=== PATIENT | male | born 1995 | race Caucasian/White ===

== ENCOUNTER 2023-02-17 18:14 | Emergency (ER) | payer OTHER, SELFPAY ==
[2023-02-17 18:17] VITALS: BP 130/71; PULSE 71; RESP 16; TEMP 37.2; O2SAT 95
--- NOTE | 2023-02-17 18:19 | ED.ANXIETY1 ---
Documented by User: Rashid Hall MD 02/17/23 18:23 HPI - Anxiety General Chief Complaint: Anxiety Stated Complaint: anxiety Time Seen by Provider: 02/17/23 18:19 Source: patient, family and EMR History of Present Illness HPI narrative: 19-year-old arrived by ambulance. His mother called the department prior to his arrival. This young man who lives independently went to his neighbor's house and asked them to call paramedics. He did not have a specific complaints that he just didn't feel right. Earlier today he did not go to work but he did not any particular reason why he didn't go. He does have a history of seizure disorder and takes Keppra. He also has history of some anxiety. Currently he was seen on arrival here. Paramedics checked his blood sugar was normal. He did not have a type of seizure or postictal state since they arrived at the scene. He's been awake and alert moderately anxious. Vital signs are noted as above. Related Data Allergies Allergy/AdvReac Type Severity Reaction Status Date / Time No Known Drug Allergies Allergy Verified 02/17/23 18:20 [facility] PFS Social History Smoking status: Never smoker Exam Narrative Exam Narrative: awake alert oriented ?3 following all commands appears in no distress do not smell alcohol. Do not see any evidence of acute intoxication. Does not have confusion, was not repeating himself. Is not ictal. Head and neck shows no evidence trauma or injury. He is blind in his right eye. The left eye shows pupils mid position and reactive. Extra ocular muscles are normal. Neck is soft and supple with no meningeal irritation. Chest shows no chest wall injury or contusions. Respiratory shows lungs clear with no wheezes rales or rhonchi pulse oximetry normal. Cardiac heart rate and rhythm are normal. There is no ectopy hear no heart murmur. Abdomen he had no abdominal complaints he does have to void and use the urinal upon arrival here. Extremities show no contusions abrasions hemaatomas or evidence of injury. Skin is warm and dry with no evidence of cyanosis. He is not clammy or diaphoretic. Neuro he follows all commands. There is no gross motor deficit. Spontaneous movement. As noted above he has no evidence of confusion. Constitutional Vital Signs - 24 hr 02/17/23 18:17 Temperature 99.0 F Pulse Rate [Monitor] 71 Respiratory Rate 16 Blood Pressure [Right Arm] 130/71 H Pulse Oximetry 95 Oxygen Delivery Method Room Air Course Vital Signs Vital signs: Vital Signs Temperature 99.0 F 02/17/23 18:17 Pulse Rate 71 02/17/23 18:17 Respiratory Rate 16 02/17/23 18:17 Blood Pressure 130/71 H 02/17/23 18:17 Pulse Oximetry 95 02/17/23 18:17 Oxygen Delivery Method Room Air 02/17/23 18:17 Temperature 99.0 F 02/17/23 18:17 Pulse Rate 71 02/17/23 18:17 Respiratory Rate 16 02/17/23 18:17 Blood Pressure 130/71 H 02/17/23 18:17 Pulse Oximetry 95 02/17/23 18:17 Oxygen Delivery Method Room Air 02/17/23 18:17 MDM - Anxiety Lab Data Labs: Lab Results 02/17/23 Range/Units 18:30 WBC 10.0 (4.0-11.0) 10^3/uL RBC 5.54 (4.70-6.10) 10^6/uL Hgb 16.7 (14.0-18.0) g/dL Hct 48.3 (42.0-54.0) % MCV 87.2 (80.0-94.0) fL MCH 30.1 (25.9-34.0) pg MCHC 34.6 (29.9-35.2) g/dL RDW 11.9 (11.0-15.0) % Plt Count 262 (150-450) 10^3/uL MPV 9.1 L (9.5-13.5) fL Neut % (Auto) 82.3 H (43.0-75.0) % Lymph % (Auto) 12.1 L (20.5-60.0) % [place] % (Auto) 4.7 (1.7-12.0) % Eos % (Auto) 0.3 L (0.9-7.0) % Baso % (Auto) 0.2 (0.2-2.0) % Neut # (Auto) 8.2 H (1.4-6.5) 10^3/uL Lymph # (Auto) 1.2 (1.2-3.8) 10^3/uL [place] # (Auto) 0.5 (0.3-0.8) 10^3/uL Eos # (Auto) 0.0 (0.0-0.7) 10^3/uL Baso # (Auto) 0.0 (0.0-0.1) 10^3/uL Abs Immat Gran (auto) 0.04 H (0.00-0.03) 10^3/uL Imm/Tot Granulo (auto) 0.4 (0.0-0.5) % Sodium 138 (136-145) mmol/L Potassium 3.4 L (3.5-5.1) mmol/L Chloride 101 (98-107) mmol/L Carbon Dioxide 26.9 (21.0-32.0) mmol/L Anion Gap 13.5 BUN 20.0 H (7.0-18.0) mg/dL Creatinine 1.06 (0.70-1.30) mg/dL Est GFR ( Amer) >60 (>=60) Est GFR (Non-Af Amer) >60 (>=60) BUN/Creatinine Ratio 18.9 Glucose 109 H (74-106) mg/dL Lactate 1.1 (0.4-2.0) mmol/L Calcium 9.9 (8.5-10.1) mg/dL Total Bilirubin 0.7 (0.2-1.0) mg/dL AST 21 (15-37) U/L ALT 41 (16-63) U/L Alkaline Phosphatase 78 (46-116) U/L Total Protein 8.0 (6.4-8.2) g/dL Albumin 4.6 (3.4-5.0) g/dL Globulin 3.4 g/dL Albumin/Globulin Ratio 1.4 Discharge Plan Discharge Chief Complaint: Anxiety Clinical Impression: Acute anxiety Patient Disposition: Home, Self-Care Instructions: Anxiety (ED) Additional Instructions: follow up with your family doctor this week for recheck Stand Alone Forms: Portal Instructions Referrals: JESÚS ADLER [Primary Care Provider] - 1 week Documented by User: Matty Roy MD 02/17/23 20:12 HPI - Anxiety General Chief Complaint: Anxiety Stated Complaint: anxiety Time Seen by Provider: 02/17/23 18:19 Related Data Allergies Allergy/AdvReac Type Severity Reaction Status Date / Time No Known Drug Allergies Allergy Verified 02/17/23 18:20 PFSH PFSH Social History Smoking status: Never smoker Exam Constitutional Vital Signs - 24 hr 02/17/23 18:17 Temperature 99.0 F Pulse Rate [Monitor] 71 Respiratory Rate 16 Blood Pressure [Right Arm] 130/71 H Pulse Oximetry 95 Oxygen Delivery Method Room Air Course Vital Signs Vital signs: Vital Signs Temperature 99.0 F 02/17/23 18:17 Pulse Rate 71 02/17/23 18:17 Respiratory Rate 16 02/17/23 18:17 Blood Pressure 130/71 H 02/17/23 18:17 Pulse Oximetry 95 02/17/23 18:17 Oxygen Delivery Method Room Air 02/17/23 18:17 Temperature 99.0 F 02/17/23 18:17 Pulse Rate 71 02/17/23 18:17 Respiratory Rate 16 02/17/23 18:17 Blood Pressure 130/71 H 02/17/23 18:17 Pulse Oximetry 95 02/17/23 18:17 Oxygen Delivery Method Room Air 02/17/23 18:17 MDM - Anxiety MDM Narrative Medical decision making narrative: care transferred at change of shift. Patient walked to neighbors and had them call Squad. Arrived without specific complaint. Workup ordered by Dr Hall neg except potassium is mildly low. Potassium supplemented. Patient in no distress. Still feels a little anxious about his body. discharged home to follow up with his doctor with working diagnosis of anxiety Lab Data Labs: Lab Results 02/17/23 Range/Units 18:30 WBC 10.0 (4.0-11.0) 10^3/uL RBC 5.54 (4.70-6.10) 10^6/uL Hgb 16.7 (14.0-18.0) g/dL Hct 48.3 (42.0-54.0) % MCV 87.2 (80.0-94.0) fL MCH 30.1 (25.9-34.0) pg MCHC 34.6 (29.9-35.2) g/dL RDW 11.9 (11.0-15.0) % Plt Count 262 (150-450) 10^3/uL MPV 9.1 L (9.5-13.5) fL Neut % (Auto) 82.3 H (43.0-75.0) % Lymph % (Auto) 12.1 L (20.5-60.0) % Beckham % (Auto) 4.7 (1.7-12.0) % Eos % (Auto) 0.3 L (0.9-7.0) % Baso % (Auto) 0.2 (0.2-2.0) % Neut # (Auto) 8.2 H (1.4-6.5) 10^3/uL Lymph # (Auto) 1.2 (1.2-3.8) 10^3/uL [place] # (Auto) 0.5 (0.3-0.8) 10^3/uL Eos # (Auto) 0.0 (0.0-0.7) 10^3/uL Baso # (Auto) 0.0 (0.0-0.1) 10^3/uL Abs Immat Gran (auto) 0.04 H (0.00-0.03) 10^3/uL Imm/Tot Granulo (auto) 0.4 (0.0-0.5) % Sodium 138 (136-145) mmol/L Potassium 3.4 L (3.5-5.1) mmol/L Chloride 101 (98-107) mmol/L Carbon Dioxide 26.9 (21.0-32.0) mmol/L Anion Gap 13.5 BUN 20.0 H (7.0-18.0) mg/dL Creatinine 1.06 (0.70-1.30) mg/dL Est GFR ( Amer) >60 (>=60) Est GFR (Non-Af Amer) >60 (>=60) BUN/Creatinine Ratio 18.9 Glucose 109 H (74-106) mg/dL Lactate 1.1 (0.4-2.0) mmol/L Calcium 9.9 (8.5-10.1) mg/dL Total Bilirubin 0.7 (0.2-1.0) mg/dL AST 21 (15-37) U/L ALT 41 (16-63) U/L Alkaline Phosphatase 78 (46-116) U/L Total Protein 8.0 (6.4-8.2) g/dL Albumin 4.6 (3.4-5.0) g/dL Globulin 3.4 g/dL Albumin/Globulin Ratio 1.4 Discharge Plan Discharge Chief Complaint: Anxiety Clinical Impression: Acute anxiety Patient Disposition: Home, Self-Care Instructions: Anxiety (ED) Additional Instructions: follow up with your family doctor this week for recheck Stand Alone Forms: Portal Instructions Referrals: JESÚS ADLER [Primary Care Provider] - 1 week
--- NOTE | 2023-02-17 18:24 | CT_ITS ---
[address] [address] Patient Name: GURPREET MCKEON MRN: [id number] date: 1995 Sex: M Assigned Patient Location: ER Current Patient Location: ED.MAIN Accession/Order Number: [id number] Exam Date: 02/17/2023 18:52 Report Date: 02/17/2023 19:35 At the request of: WANDA MAYER Procedure: CT head/brain wo con EXAMINATION: CT head/brain wo con, 02/17/2023 6:52 PM EDT HISTORY: Confusion COMPARISON: 01/12/2014 TECHNIQUE: CT scan of the head was performed without IV contrast. CT dose reduction technique was used, including Automated Exposure Control. FINDINGS: BRAIN PARENCHYMA/CSF SPACES: Ventricles are normal in size for age. There is no hemorrhage, mass effect or midline shift. There are no other significant findings. PARANASAL SINUSES: Clear. SKULL BASE AND CALVARIUM: Normal. EXTRACRANIAL SOFT TISSUES: Partially calcified right globe. IMPRESSION: No acute intracranial findings. Calcified right globe. Electronically authenticated by: BERNIE AUSTIN Date: 02/17/2023 19:35
--- NOTE | 2023-02-17 18:24 | ECG_ITS ---
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
--- NOTE | 2023-02-17 18:48 | PC.NURSE ---
per pt's mom, pt somewhat disoriented today and went to neighbors saying he didn't feel good. 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 takes keppra for a seizure disorder
[2023-02-17 18:59] LABS: Basophils Percent Auto 0.2 % (0.2-2.0); Eosinophils Percent Auto 0.3 % (0.9-7.0); Hematocrit 48.3 % (42.0-54.0); Hemoglobin 16.7 g/dL (14.0-18.0); Immature Granulocytes Abs Auto 0.04 10^3/uL (0.00-0.03); Immature Granulocytes Pct Auto 0.4 % (0.0-0.5); Lymphocytes Absolute Auto 1.2 10^3/uL (1.2-3.8); Lymphocytes Percent Auto 12.1 % (20.5-60.0); Mean Corpuscular HGB Conc 34.6 g/dL (29.9-35.2); Mean Corpuscular Hemoglobin 30.1 pg (25.9-34.0); Mean Corpuscular Volume 87.2 fL (80.0-94.0); Mean Platelet Volume 9.1 fL (9.5-13.5); Monocytes Absolute Auto 0.5 10^3/uL (0.3-0.8); Monocytes Percent Auto 4.7 % (1.7-12.0); Neutrophils Absolute Auto 8.2 10^3/uL (1.4-6.5); Neutrophils Percent Auto 82.3 % (43.0-75.0); Platelet Count 262 10^3/uL (150-450); Red Blood Count 5.54 10^6/uL (4.70-6.10); Red Cell Distribution Width 11.9 % (11.0-15.0)
[2023-02-17 19:19] LABS: Lactate/Lactic Acid 1.1 mmol/L (0.4-2.0)
[2023-02-17 19:25] LABS: Alanine Aminotransferase 41 U/L (16-63); Albumin Globulin Ratio 1.4; Albumin Level 4.6 g/dL (3.4-5.0); Alkaline Phosphatase 78 U/L (46-116); Anion Gap 13.5; Aspartate Amino Transferase 21 U/L (15-37); BUN Creatinine Ratio 18.9; Bilirubin Total 0.7 mg/dL (0.2-1.0); Calcium 9.9 mg/dL (8.5-10.1); Carbon Dioxide 26.9 mmol/L (21.0-32.0); Chloride 101 mmol/L (98-107); Estimated GFR (African America >60 (>=60); Estimated GFR (Non-African Ame >60 (>=60); Globulin 3.4 g/dL; Glucose 109 mg/dL (74-106); Potassium 3.4 mmol/L (3.5-5.1); Sodium 138 mmol/L (136-145)
[2023-02-17] MEDS: POTASSIUM CHLORIDE 10 MEQ ER TABLET 40 MEQ PO (20:25)
== END 2023-02-17 20:35 | disposition home or self-care (01) ==
PROVIDERS: Emergency Medicine Emergency Medical Services; Emergency Provider Internal Medicine; PCP Family Medicine
DX: F41.9 Anxiety disorder, unspecified (principal)
CPT/HCPCS: 36415; 70450; 80053; 83605; 85025; 93005; 99285

== ENCOUNTER 2023-04-22 14:25 | Emergency (ER) | payer OTHER, SELFPAY ==
[2023-04-22] VITALS (17 sets, daily range): BP systolic 112–130; BP diastolic 59–75; PULSE 67–90; RESP 13–31; TEMP 36.7; O2SAT 96–98; BMI 25.8
--- NOTE | 2023-04-22 14:37 | ED.GENADUL1 ---
HPI - General Adult General Chief complaint: Eye Problems Stated complaint: L EYE FOGGY/BLURRINESS Time Seen by Provider: 04/22/23 14:34 History of Present Illness HPI narrative: Patient presents to emergency Department via private car with the Complaint of left eye blurry vision. Patient states at 2:00 today he got up from a seated position very fast and then he developed left sided blurred vision. He states he just looks like his vision is blurry. He went to his neighbor to let him know that he didn't come to the emergency department. Patient denies any headache, fever, or chills. He denies any paresthesias, or weakness. He was born with right eye blindness. 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 Patient states he had symptoms like this before but he was not having his blurred vision. He is able to read anything that he. 2 normal reading distance which he normally does. He is also able to read and navigate through his cell phone without any difficulties. Remaining passage from his cell phone with normal front. Patient denies any nausea, vomiting, diarrhea, constipation, or abdominal pain. He denies any chest pain, shortness of breath. He has a history of seizures has not had any seizures in the last 3 years. Related Data Home Medications Medication Instructions Recorded Confirmed oxcarbazepine 300 mg tablet 300 mg PO DAILY 04/22/23 04/22/23 Allergies Allergy/AdvReac Type Severity Reaction Status Date / Time No Known Drug Allergies Allergy Verified 02/17/23 18:20 Review of Systems ROS Status of ROS 10 or more systems reviewed and unremarkable except as noted in history and below [facility] Social History Smoking status: Never smoker Exam Narrative Exam Narrative: Nurses notes and vital signs reviewed and patient is not hypoxic. General: Nontoxic, hyperventilating, and in no apparent distress. Skin: Warm, dry, no pallor noted. No Rash Head: Normocephalic, atraumatic. Neck: Supple, non-tender. Eye: Pupil 3mm, Reactive,EOMI. right eye cataract noted. No scleral icterus. Ears, Nose, Mouth, and Throat: Left hearing aid. TM clear, no posterior oropharynx erythema or nasal mucosal hypertrophy, uvula is mid-line Oral mucosa is moist Cardiovascular: Regular Rate and Rhythm without murmur, gallop or rub. Respiratory: No accessory muscle use or respiratory distress. Lungs are clear to auscultation, no wheezing, rales or rhonchi Chest Wall: no tenderness Back: No midline thoracic or lumbar vertebral tenderness. No CVA tenderness Musculoskeletal: normal ROM, no calf or popliteal tenderness, no lower extremity edema/swelling GI: Abdomen is soft, non-distended. Normal bowel sounds. No masses appreciated. No tenderness to palpation. No rebound, guarding, or rigidity noted. Neurological: A&O x4. No cranial nerve dysfunction observed. No truncal ataxia. Moves all extremities. Sensation intact. Psychiatric: Cooperative and interactive. anxious Constitutional Vital Signs, click to edit/add: Last Vital Signs Temp 98.1 F 04/22/23 14:36 Pulse 85 04/22/23 16:32 Resp 24 04/22/23 16:20 BP 120/75 04/22/23 16:32 Pulse Ox 98 04/22/23 16:20 O2 Del Method Room Air 04/22/23 15:27 Course Vital Signs Vital signs: Vital Signs Temperature 98.1 F 04/22/23 14:36 Pulse Rate 72 04/22/23 14:36 Respiratory Rate 18 04/22/23 14:36 Blood Pressure 116/71 04/22/23 14:36 Pulse Oximetry 97 04/22/23 14:36 Oxygen Delivery Method Room Air 04/22/23 14:36 Temperature 98.1 F 04/22/23 14:36 Pulse Rate 85 04/22/23 16:32 Respiratory Rate 24 04/22/23 16:20 Blood Pressure 120/75 04/22/23 16:32 Pulse Oximetry 98 04/22/23 16:20 Oxygen Delivery Method Room Air 04/22/23 15:27 Medical Decision Making MDM Narrative Medical decision making narrative: Patient does not have focal vision loss. pt is able to read and navigate to his fall without any difficulty. He was given 1 mg of Ativan IV, 1 L of normal saline, and he was able to get up several times to go to the bathroom and ambulated without any difficulty. CT of his brain was done and CTs were done which are unremarkable. Studies are unremarkable. All findings were discussed with the patient and his neighbor. Patient states he is feeling better or symptoms have resolved and he would like to go home and see his flagstone layer tomorrow. At this time the patient is without objective evidence of an acute process requiring hospitalization or inpatient management. The patient has remained hemodynamically stable. No additional indication for emergent studies at this time. I answered all questions. Discussed discharge instructions including standard anticipatory guidance and what should prompt a return to the emergency department, including if they get worse are not getting better or develops any new or concerning symptoms. I've given them specific time frame in which to follow-up, and who to follow-up with. The patient demonstrates understanding. Patient is nontoxic and stable for discharge with outpatient follow-up. This note was created with the assistance of a speech recognition program. Although the intention is to generate documents that actually reflects the content of the visit, no guarantees can be provided that every mistake has been identified and corrected by editing. Lab Data Lab results reviewed: Yes I reviewed the patient's lab results Labs: Lab Results 04/22/23 04/22/23 Range/Units 14:15 14:54 WBC 6.5 (4.0-11.0) 10^3/uL RBC 5.70 (4.70-6.10) 10^6/uL Hgb 17.3 (14.0-18.0) g/dL Hct 49.8 (42.0-54.0) % MCV 87.4 (80.0-94.0) fL MCH 30.4 (25.9-34.0) pg MCHC 34.7 (29.9-35.2) g/dL RDW 11.8 (11.0-15.0) % Plt Count 246 (150-450) 10^3/uL MPV 9.1 L (9.5-13.5) fL Neut % (Auto) 62.2 (43.0-75.0) % Lymph % (Auto) 30.4 (20.5-60.0) % [place] % (Auto) 5.4 (1.7-12.0) % Eos % (Auto) 1.5 (0.9-7.0) % Baso % (Auto) 0.3 (0.2-2.0) % Neut # (Auto) 4.0 (1.4-6.5) 10^3/uL Lymph # (Auto) 2.0 (1.2-3.8) 10^3/uL [place] # (Auto) 0.4 (0.3-0.8) 10^3/uL Eos # (Auto) 0.1 (0.0-0.7) 10^3/uL Baso # (Auto) 0.0 (0.0-0.1) 10^3/uL Abs Immat Gran (auto) 0.01 (0.00-0.03) 10^3/uL Imm/Tot Granulo (auto) 0.2 (0.0-0.5) % PT 10.5 (9.0-11.6) sec INR 0.99 APTT 25.1 (22.3-36.2) sec Sodium 139 (136-145) mmol/L Potassium 3.8 (3.5-5.1) mmol/L Chloride 100 (98-107) mmol/L Carbon Dioxide 28.2 (21.0-32.0) mmol/L Anion Gap 14.6 BUN 15.0 (7.0-18.0) mg/dL Creatinine 0.87 (0.70-1.30) mg/dL Est GFR ( Amer) >60 (>=60) Est GFR (Non-Af Amer) >60 (>=60) BUN/Creatinine Ratio 17.2 Glucose 109 H (74-106) mg/dL Calcium 9.6 (8.5-10.1) mg/dL Total Bilirubin 0.7 (0.2-1.0) mg/dL AST 24 (15-37) U/L ALT 39 (16-63) U/L Alkaline Phosphatase 70 (46-116) U/L Troponin I High Sens 4.1 (4.0-76.1) pg/mL Total Protein 8.0 (6.4-8.2) g/dL Albumin 4.8 (3.4-5.0) g/dL Globulin 3.2 g/dL Albumin/Globulin Ratio 1.5 POC Glucose 114 H (74-106) mg/dL ECG Data Attestation: I personally reviewed and interpreted this ECG as follows: Interpretation: Sinus rhythm at 66 bpm. There are no acute ischemic changes. Normal axis Critical Care Time Critical Care Time Critical Care Time: Yes Total Critical Care Time: 35 Attestation: Critical Care Time: 35 minutes, critical care time is separate from any procedures that are performed. The following was considered in the determination of critical care but not limited to the level medical decision-making, intensive cardiac and/or respiratory monitor, frequent vital sign monitoring, evaluation of laboratory studies, evaluation of a radiographic studies, oxygen monitoring and constant monitoring. Discharge Plan Discharge Chief Complaint: Eye Problems Clinical Impression: Visual disturbance, Acute anxiety Patient Disposition: Home, Self-Care Time of Disposition Decision: 18:18 Condition: Good Mode of Transportation: Private Vehicle Prescriptions / Home Meds: No Action oxcarbazepine 300 mg tablet 300 mg PO DAILY Instructions: Blurred Vision (ED), Anxiety (ED) Additional Instructions: follow up with opthalmology Dr. Sofia ini the morning. Stand Alone Forms: Portal Instructions Referrals: JESÚS ADLER [Primary Care Provider] - 1 week JAYA VILLANUEVA APRN [Physician] - 1 week
--- NOTE | 2023-04-22 14:50 | ECG_ITS ---
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
--- NOTE | 2023-04-22 14:50 | CT_ITS ---
The [address] [address] Patient Name: GURPREET MCKEON MRN: [id number] date: 1995 Sex: M Assigned Patient Location: ER Current Patient Location: ER Accession/Order Number: [id number] Exam Date: 04/22/2023 15:00 Report Date: 04/22/2023 15:19 At the request of: WILEY ALVARES Procedure: CT stroke head/brain wo con EXAMINATION: CT stroke head/brain wo con TECHNIQUE: Axial CT images were obtained through the brain. Sagittal and coronal reformatted images were also obtained. Dose reduction techniques were achieved by using automated exposure control and/or adjustment of mA and/or kV according to patient size and/or use of iterative reconstruction technique. HISTORY: l vision disturbance COMPARISON: 02/17/2023 FINDINGS: Intracranial Bleed: No evidence for acute intracranial bleed. Intracranial Mass: No evidence for mass lesion. No mass effect or midline shift. Extra-axial spaces: The ventricular system is normal caliber. White/Miller Matter: No acute cortical infarct. No significant white matter abnormality. Skull/Scalp: No evidence for skull fracture or lesion. Orbits and sinuses: Chronic dense calcifications of the retina of the right globe. Left globe and extraocular muscles are unremarkable. Mild mucosal thickening of the ethmoid air cells. CT/CT stroke head/brain wo con IMPRESSION: No acute intracranial pathology. Electronically authenticated by: HAILEY SNOW Date: 04/22/2023 15:19
--- NOTE | 2023-04-22 14:50 | XR_ITS ---
The [address] [address] Patient Name: GURPREET MCKEON MRN: [id number] date: 1995 Sex: M Assigned Patient Location: ER Current Patient Location: ER Accession/Order Number: [id number] Exam Date: 04/22/2023 15:00 Report Date: 04/22/2023 15:22 At the request of: WILEY ALVARES Procedure: XR chest 1V EXAM: XR chest 1V at 1441 hours HISTORY: . Acute onset work. left vision disturbance COMPARISON: None. TECHNIQUE: AP upright portable chest x-ray FINDINGS: The heart is not enlarged and the vasculature is not distended. No acute infiltrate, effusion or pneumothorax is identified. The osseous structures are grossly intact. XR/XR chest 1V IMPRESSION: No acute infiltrate or evidence of cardiac decompensation. Direct comparison with a previous study is recommended to verify stability of these findings. Electronically authenticated by: MISTI OTT Date: 04/22/2023 15:22
--- NOTE | 2023-04-22 14:53 | CT_ITS ---
The [address] [address] Patient Name: GURPREET MCKEON MRN: [id number] date: 1995 Sex: M Assigned Patient Location: ER Current Patient Location: Accession/Order Number: [id number] Exam Date: 04/22/2023 15:00 Report Date: 04/22/2023 15:58 At the request of: WILEY ALVARES Procedure: CT angio neck EXAMINATION: CT angio neck, CT angio head, 04/22/2023 12:00 PM PDT HISTORY: cva left-sided vision changes TECHNIQUE: Multiple CTA images of the head and neck were obtained after the rapid bolus intravenous contrast administration. MIP reformats or 3-dimensional volume related imaging created and submitted for evaluation. NASCET CRITERIA UTILIZATION: Carotid artery stenosis, if present, was calculated according to the NASCET criteria, which calculates the degree of stenosis with reference to the lumen of the internal carotid artery distal to the stenosis. Dose reduction technique was used including one or more of the following: automated exposure control, adjustment of mA and kV according to patient size, and/or iterative reconstruction. COMPARISON: CT head 02/17/2023. FINDINGS: CTA HEAD: No evidence of aneurysm formation, arteriovenous malformation, or large vessel occlusion. CTA NECK: No evidence of acute vascular injury nor hemodynamically significant stenosis utilizing NASCET criteria involving either common carotid, internal carotid, or vertebral artery. Right-sided phthisis bulbi. CT/CT angio neck IMPRESSION: Motion degraded exam. No acute intracranial large vessel occlusion. No hemodynamically significant stenosis of the neck. Electronically authenticated by: LANG HONEYCUTT Date: 04/22/2023 15:58
--- NOTE | 2023-04-22 14:53 | CT_ITS ---
The [address] [address] Patient Name: GURPREET MCKEON MRN: [id number] date: 1995 Sex: M Assigned Patient Location: ER Current Patient Location: Accession/Order Number: [id number] Exam Date: 04/22/2023 15:00 Report Date: 04/22/2023 15:58 At the request of: WILEY ALVARES Procedure: CT angio head EXAMINATION: CT angio neck, CT angio head, 04/22/2023 12:00 PM PDT HISTORY: cva left-sided vision changes TECHNIQUE: Multiple CTA images of the head and neck were obtained after the rapid bolus intravenous contrast administration. MIP reformats or 3-dimensional volume related imaging created and submitted for evaluation. NASCET CRITERIA UTILIZATION: Carotid artery stenosis, if present, was calculated according to the NASCET criteria, which calculates the degree of stenosis with reference to the lumen of the internal carotid artery distal to the stenosis. Dose reduction technique was used including one or more of the following: automated exposure control, adjustment of mA and kV according to patient size, and/or iterative reconstruction. COMPARISON: CT head 02/17/2023. FINDINGS: CTA HEAD: No evidence of aneurysm formation, arteriovenous malformation, or large vessel occlusion. CTA NECK: No evidence of acute vascular injury nor hemodynamically significant stenosis utilizing NASCET criteria involving either common carotid, internal carotid, or vertebral artery. Right-sided phthisis bulbi. CT/CT angio head IMPRESSION: Motion degraded exam. No acute intracranial large vessel occlusion. No hemodynamically significant stenosis of the neck. Electronically authenticated by: LANG HONEYCUTT Date: 04/22/2023 15:58
[2023-04-22 15:00] LABS: Glucometer 114 mg/dL (74-106)
[2023-04-22 15:19] LABS: Basophils Percent Auto 0.3 % (0.2-2.0); Eosinophils Absolute Auto 0.1 10^3/uL (0.0-0.7); Eosinophils Percent Auto 1.5 % (0.9-7.0); Hematocrit 49.8 % (42.0-54.0); Hemoglobin 17.3 g/dL (14.0-18.0); Immature Granulocytes Abs Auto 0.01 10^3/uL (0.00-0.03); Immature Granulocytes Pct Auto 0.2 % (0.0-0.5); Lymphocytes Percent Auto 30.4 % (20.5-60.0); Mean Corpuscular HGB Conc 34.7 g/dL (29.9-35.2); Mean Corpuscular Hemoglobin 30.4 pg (25.9-34.0); Mean Corpuscular Volume 87.4 fL (80.0-94.0); Mean Platelet Volume 9.1 fL (9.5-13.5); Monocytes Absolute Auto 0.4 10^3/uL (0.3-0.8); Monocytes Percent Auto 5.4 % (1.7-12.0); Neutrophils Percent Auto 62.2 % (43.0-75.0); Platelet Count 246 10^3/uL (150-450); Red Cell Distribution Width 11.8 % (11.0-15.0); White Blood Count 6.5 10^3/uL (4.0-11.0)
[2023-04-22] MEDS: LORAZEPAM 2 MG/ML 1 ML VIAL 1 MG IV (15:22)
[2023-04-22 16:00] LABS: INR 0.99; Partial Thromboplastin Time 25.1 sec (22.3-36.2); Prothrombin Time 10.5 sec (9.0-11.6)
[2023-04-22 16:02] LABS: Alanine Aminotransferase 39 U/L (16-63); Albumin Globulin Ratio 1.5; Albumin Level 4.8 g/dL (3.4-5.0); Alkaline Phosphatase 70 U/L (46-116); Anion Gap 14.6; Aspartate Amino Transferase 24 U/L (15-37); BUN Creatinine Ratio 17.2; Bilirubin Total 0.7 mg/dL (0.2-1.0); Calcium 9.6 mg/dL (8.5-10.1); Carbon Dioxide 28.2 mmol/L (21.0-32.0); Chloride 100 mmol/L (98-107); Estimated GFR (African America >60 (>=60); Estimated GFR (Non-African Ame >60 (>=60); Globulin 3.2 g/dL; Glucose 109 mg/dL (74-106); Potassium 3.8 mmol/L (3.5-5.1); Sodium 139 mmol/L (136-145); Troponin I High Sensitivity 4.1 pg/mL (4.0-76.1)
[2023-04-22] MEDS: 0.9 % SODIUM CHLORIDE 1,000 ML 999 ML IV (16:33)
== END 2023-04-22 18:37 | disposition home or self-care (01) ==
PROVIDERS: Emergency Provider Emergency Medicine; PCP Family Medicine
DX: H53.8 Other visual disturbances (principal); F41.9 Anxiety disorder, unspecified
CPT/HCPCS: 36415; 70450; 70496; 70498; 71045; 80053; 84484; 85025; 85610; 85730; 93005; 96374; 99285; Q9967

== ENCOUNTER 2023-08-05 10:27 | Outpatient (OUT) | payer OTHER, SELFPAY ==
[2023-08-05 11:22] LABS: Basophils Percent Auto 0.4 % (0.2-2.0); Eosinophils Absolute Auto 0.2 10^3/uL (0.0-0.7); Eosinophils Percent Auto 3.4 % (0.9-7.0); Hematocrit 48.9 % (42.0-54.0); Hemoglobin 16.5 g/dL (14.0-18.0); Immature Granulocytes Abs Auto 0.01 10^3/uL (0.00-0.03); Immature Granulocytes Pct Auto 0.2 % (0.0-0.5); Lymphocytes Percent Auto 35.8 % (20.5-60.0); Mean Corpuscular HGB Conc 33.7 g/dL (29.9-35.2); Mean Corpuscular Hemoglobin 30.1 pg (25.9-34.0); Mean Corpuscular Volume 89.2 fL (80.0-94.0); Mean Platelet Volume 9.4 fL (9.5-13.5); Monocytes Absolute Auto 0.5 10^3/uL (0.3-0.8); Monocytes Percent Auto 8.9 % (1.7-12.0); Neutrophils Absolute Auto 2.8 10^3/uL (1.4-6.5); Neutrophils Percent Auto 51.3 % (43.0-75.0); Platelet Count 238 10^3/uL (150-450); Red Blood Count 5.48 10^6/uL (4.70-6.10); Red Cell Distribution Width 11.9 % (11.0-15.0); White Blood Count 5.5 10^3/uL (4.0-11.0)
[2023-08-05 12:10] LABS: Erythrocyte Sedimentation Rate 4 mm/hr (<=15)
[2023-08-05 12:16] LABS: Alanine Aminotransferase 43 U/L (16-63); Albumin Globulin Ratio 1.4; Albumin Level 4.6 g/dL (3.4-5.0); Alkaline Phosphatase 93 U/L (46-116); Anion Gap 13.6; Aspartate Amino Transferase 27 U/L (15-37); BUN Creatinine Ratio 14.7; Bilirubin Direct 0.2 mg/dL (0.0-0.2); Bilirubin Total 0.9 mg/dL (0.2-1.0); Calcium 9.4 mg/dL (8.5-10.1); Carbon Dioxide 27.5 mmol/L (21.0-32.0); Chloride 102 mmol/L (98-107); Chol HDL Ratio 3.6; Cholesterol 273 mg/dL (<=200); Estimated GFR (African America >60 (>=60); Estimated GFR (Non-African Ame >60 (>=60); Globulin 3.3 g/dL; Glucose 83 mg/dL (74-106); HDL Cholesterol 76 mg/dL (40-60); Potassium 4.1 mmol/L (3.5-5.1); Sodium 139 mmol/L (136-145); Total Protein 7.9 g/dL (6.4-8.2); Triglycerides 65 mg/dL (<=150)
== END 2023-08-05 10:28 | disposition home or self-care (01) ==
PROVIDERS: PCP Nurse Practitioner; Visit Provider Nurse Practitioner
DX: R51.9 Headache, unspecified (principal); G40.909 Epilepsy, unspecified, not intractable, without status epilepticus
CPT/HCPCS: 36415; 80048; 80061; 80076; 85025; 85652